=== PATIENT | female | born 1995 | race Caucasian/White ===

== ENCOUNTER 2016-08-26 12:57 | Emergency (ER) | payer OTHER ==
[~2016-08-26] VITALS: Ht 160 cm; Wt 53.5 kg
[~2016-08-26 12:57] MED LIST: CNC/36 PO; HYDR5SYP11 PO
[2016-08-26 12:59] VITALS: TEMP 36.4; Ht 160 cm; Wt 53.5 kg
[2016-08-26] MEDS ORDERED: ASCO1CAP3 PO (13:53)
[2016-08-26] MEDS ORDERED: FERR50TA3 PO (13:54)
[2016-08-26] MEDS ORDERED: IBUP-103 PO (13:55)
--- NOTE | 2016-08-26 14:03 | DIAGNOSTIC IMAGING REPORT ---
LEFT FOOT MIN 3 VIEWS ROUTINE CLINICAL HISTORY: Pain from proximal lateral left tib to toes. Inversion injury COMPARISON: None. DISCUSSION: The bones and joint spaces appear intact. There is no evidence of fracture, dislocation or bony disease. There is no evidence for soft tissue swelling. IMPRESSION: Negative study. Electronically signed by: Luis Antonio Kitchen M.D. 08/26/2016 2:02 PM Dictated Date/Time: 08/26/2016 2:01 PM
--- NOTE | 2016-08-26 14:11 | DIAGNOSTIC IMAGING REPORT ---
LEFT TIBIA/FIBULAR 2 VIEWS, LEFT ANKLE 3 VIEWS HISTORY: Pain from proximal lateral left tib to toes. Inversion injury COMPARISON: None. FINDINGS: There is no fracture or dislocation. Soft tissues are unremarkable. No radiopaque foreign bodies. IMPRESSION: No fracture or dislocation within the left lower leg or left ankle. Electronically signed by: Viktor Funez M.D. 08/26/2016 2:09 PM Dictated Date/Time: 08/26/2016 2:05 PM
--- NOTE | 2016-08-26 14:22 | EMERGENCY ROOM VISIT NOTE ---
History First contact with patient: 13:09 Chief Complaint: ANKLE PAIN Stated Complaint: L ANKLE, TORE BEFORE History of Present Illness The patient is a 21 year old female who presents to the Emergency Room via private vehicle with complaints of "left ankle, told before". Patient states that Wednesday or Wednesday of this past week she was walking and inverted her left ankle while walking. She denies falling to the ground. She states that for the past 2 days it is hurt and she is taking Advil but the left ankle has begun to swell. She went to the gym yesterday, took 10 steps and then was in more pain. She points to the left lateral ankle as a location of the pain that she rates as a 7/10. She notes her toes are slightly tingling. She notes that she did tear tendon in the past. Her orthopedic doctor is in [place]. She is a [employer]. Review of Systems A complete 6-point Review of Systems was discussed with the patient, with pertinent positives and negatives listed in the History of Present Illness. All remaining Review of Systems questions can be considered negative unless otherwise specified. Past Medical/Surgical History Medical Problems: (1) Mononucleosis Left ankle injury Family History Patient reports no known family medical history. Multiple sclerosis Social History Smoking Status: Never Smoker Alcohol Use: none Marital Status: single Housing Status: lives with friends Occupation Status: [employer] student Current/Historical Medications Scheduled Ascorbic Acid (Vitamin C), 500 MG PO DAILY Ferrous Sulfate (Iron (Ferrous Sulfate)), Unknown Dose PO DAILY Ibuprofen Tab (Advil), 400 MG PO DAILY Methylphenidate Hcl (Concerta), 36 MG PO DAILY Allergies Coded Allergies: [place] Pepper (Unverified Allergy, Unknown, hives, 08/26/16) Amoxicillin (Verified Adverse Reaction, Unknown, GI SYMPTOMS, 08/26/16) Clavulanic Acid (Verified Adverse Reaction, Unknown, GI SYMPTOMS, 08/26/16) Physical Exam Vital Signs Date Time Temp Pulse Resp B/P Pulse Ox O2 Delivery O2 Flow Rate FiO2 08/26/16 14:38 95 18 119/79 98 08/26/16 12:59 36.4 87 16 113/78 96 Room Air Physical Exam VITAL SIGNS - Vital signs and nursing notes were reviewed. Vital signs are stable. GENERAL -21-year-old female appearing her stated age who is in no acute distress. Communicates well with provider and answers questions appropriately. SKIN - Without rashes. No evidence of breaks in the integument overlying the left ankle. HEAD - NC/AT. EXTREMITIES - No clubbing or peripheral cyanosis. No pretibial edema present. Patient is vascularly intact in the left lower extremity. There is tenderness palpation overlying the left lateral malleolus. No ecchymosis. There is minimal edema. Near full range of motion but slightly limited secondary to pain. No vascular or neurologic deficits. There is tenderness to palpation of the distal tip/fib region into the left ankle extending into the foot. +5/5 strength noted in UE/LE bilaterally. Medical Decision & Procedures ER Provider Diagnostic Interpretation: LEFT TIBIA/FIBULAR 2 VIEWS, LEFT ANKLE 3 VIEWS HISTORY: Pain from proximal lateral left tib to toes. Inversion injury COMPARISON: None. FINDINGS: There is no fracture or dislocation. Soft tissues are unremarkable. No radiopaque foreign bodies. IMPRESSION: No fracture or dislocation within the left lower leg or left ankle. Electronically signed by: Viktor Funez M.D. 08/26/2016 2:09 PM Dictated Date/Time: 08/26/2016 2:05 PM LEFT FOOT MIN 3 VIEWS ROUTINE CLINICAL HISTORY: Pain from proximal lateral left tib to toes. Inversion injury COMPARISON: None. DISCUSSION: The bones and joint spaces appear intact. There is no evidence of fracture, dislocation or bony disease. There is no evidence for soft tissue swelling. IMPRESSION: Negative study. Electronically signed by: Luis Antonio Kitchen M.D. 08/26/2016 2:02 PM Dictated Date/Time: 08/26/2016 2:01 PM LEFT TIBIA/FIBULAR 2 VIEWS, LEFT ANKLE 3 VIEWS HISTORY: Pain from proximal lateral left tib to toes. Inversion injury COMPARISON: None. FINDINGS: There is no fracture or dislocation. Soft tissues are unremarkable. No radiopaque foreign bodies. IMPRESSION: No fracture or dislocation within the left lower leg or left ankle. Electronically signed by: Viktor Funez M.D. 08/26/2016 2:09 PM Dictated Date/Time: 08/26/2016 2:05 PM Medical Decision Patient was seen and evaluated as above. After obtaining a thorough history and physical examination radiographs of the tib-fib/ankle and foot were obtained secondary to subjective and objective examination findings. There was concern for fracture of these regions. Results as above. I agree with results as published by the radiologist. Patient noted she could not use crutches and requested a walking boot. She was fitted with a walking boot. She was instructed to try to remain weightbearing but did note that she could not use crutches. Therefore she was not provided with crutches. She was educated upon management of today's findings. No fractures. She is to follow-up with the safety equipment testing specialist by calling their phone number first thing tomorrow morning. She was educated upon management of the likely left ankle sprain. She was educated upon worrisome symptoms in which to return, had questions answered prior to discharge, and was discharged home in good condition. In the evaluation and treatment of this patient, the following differential diagnoses were considered: Ankle Fracture, Ankle Sprain, Distal Fibula Fracture , Distal Tibia Fracture, Foot Fracture, [place]uve Fracture. Impression Primary Impression: Ankle pain Departure Information Dispostion Home / Self-Care Condition GOOD Referrals No Doctor, Assigned (PCP) Bar Fox MD Patient Instructions My [facility] Additional Instructions You have been treated in the Emergency Department for a Left ankle injury. For pain control, you can use the following [id number] medicines (if >12 yo): - Regular strength (325mg/tab) Tylenol (acetaminophen) 2 tabs every 4-6 hours as needed. Do not exceed 12 tablets in a 24 hour period. Avoid taking more than 4 grams (4000 mg) of Tylenol per day. This includes any other sources of acetaminophen you may take on a regular basis. - Regular strength (200 mg/tab) Advil (ibuprofen) 1-2 tabs every 4-6 hours as needed. Do not exceed a dose of 3200 mg per day. If this is a recent injury (<24 hrs), ice can be applied to the area of pain for the first 3 days to help decrease pain and inflammation. You have been provided the number for an Orthopaedic Surgeon. You should call this number as soon as possible to establish a follow-up visit from today's Emergency Department visit. (Dr. Fox) Keep the ankle brace/splint in place until cleared by Orthopedics. Please try to keep ALL weight off of the ankle until weight bearing is tolerable. You were NOT given crutches as per your request. Return to the Emergency Department if your current symptoms worsen despite treatment course outlined above, or if you develop any of the following symptoms : intractable pain despite aforementioned treatment course or new onset of numbness or tingling of the foot. Please return to the emergency department with any new/concerning symptoms. Problem Qualifiers Primary Impression: Ankle pain Laterality: left Chronicity: acute Qualified Codes: M25.572 - Pain in left ankle and joints of left foot
[2016-08-26 14:38] VITALS: BP 119/79; PULSE 95; O2SAT 98
== END 2016-08-26 14:40 | disposition home or self-care (01) ==
LOC: C.EDB 12:58 → C.EDD 14:40
DX: M25.572 Pain in left ankle and joints of left foot (principal); Z87.828 Personal history of other (healed) physical injury and trauma; Z86.19 Personal history of other infectious and parasitic diseases; Z79.899 Other long term (current) drug therapy; Z88.1 Allergy status to other antibiotic agents; Z88.8 Allergy status to other drugs, medicaments and biological substances; Z91.018 Allergy to other foods